=== PATIENT | female | born 1975 | race Caucasian/White ===

== ENCOUNTER 2019-04-24 21:04 | Inpatient (IN) | payer OTHER ==
[~2019-04-24] VITALS: Ht 172.7 cm; Wt 81.6 kg
[2019-04-24 21:51] LABS: BASOPHIL % 0.9 % (0-2); PLATELET COUNT 370 x10^3mcL (130-400)
[2019-04-24 21:54] LABS: RED CELL DISTRIBUTION WIDTH 21.6 % (11.5-14.5)
[2019-04-24 22:02] LABS: rbc morphology (normal/abnorm) ABNORMAL (NORMAL)
[2019-04-24 22:04] LABS: CALCIUM 9.5 mg/dL (8.5-10.1); CARBON DIOXIDE 18.6 mmol/L (21-32); CREATININE SERUM 1.3 mg/dL (0.6-1.0); POTASSIUM SERUM 4.2 mmol/L (3.5-5.1)
[2019-04-24 22:06] LABS: BILIRUBIN TOTAL 0.1 mg/dL (0.20-1.00); TOTAL PROTEIN, SERUM 7.7 g/dL (6.4-8.2)
[2019-04-24 22:13] LABS: ALBUMIN 2.7 g/dL (3.4-5.0)
[2019-04-25 01:39] LABS: CHOLESTEROL 161 mg/dL (<200); MAGNESIUM 2.1 mg/dL (1.8-2.4); PHOSPHOROUS 4.3 mg/dL (2.5-4.9)
[2019-04-25 01:41] LABS: CHOLESTEROL/HDL RATIO 5.2; HDL CHOLESTEROL 31 mg/dL (40-60); TRIGLYCERIDES 480 mg/dL (<150)
[2019-04-25 01:48] LABS: T3 TOTAL 1.43 ng/mL
[2019-04-25 01:56] LABS: FREE T4 1.17 ng/dL (0.76-1.46); FREE THYROXINE INDEX 3.4 ug/dL (1.4-4.5); T4(THYROXINE) 8.6 ug/dL (4.7-13.3)
[2019-04-25] MEDS ORDERED: LEVEMIR100 U/M1 SC (02:03)
[2019-04-25] MEDS ORDERED: METFORMIN HYDR500 M1 PO (02:04)
[2019-04-25] MEDS ORDERED: KAPVAY0.1 MG (02:05)
[2019-04-25] MEDS ORDERED: GLYBURIDE2.5 MG (02:05)
[2019-04-25 02:34] VITALS: BP 124/74
[2019-04-25 05:44] LABS: CALCIUM 9.7 mg/dL (8.5-10.1); CARBON DIOXIDE 22.4 mmol/L (21-32); CHLORIDE SERUM 98 mmol/L (98-107); CREATININE SERUM 0.8 mg/dL (0.6-1.0); GFR1 > 60 mL/min; GLUCOSE SERUM 367 mg/dL (74-106); LIPASE 109 IU/L (73-393); MAGNESIUM 1.9 mg/dL (1.8-2.4); POTASSIUM SERUM 3.6 mmol/L (3.5-5.1); SODIUM SERUM 135 mmol/L (136-145)
[2019-04-25 08:36] LABS: CHLORIDE SERUM 101 mmol/L (98-107); CREATININE SERUM 0.6 mg/dL (0.6-1.0); GFR1 > 60 mL/min; GLUCOSE SERUM 260 mg/dL (74-106); MAGNESIUM 1.7 mg/dL (1.8-2.4); PHOSPHOROUS 3.7 mg/dL (2.5-4.9); POTASSIUM SERUM 3.6 mmol/L (3.5-5.1); SODIUM SERUM 135 mmol/L (136-145)
[2019-04-25 08:59] LABS: PLATELET COUNT 347 x10^3mcL (130-400)
[2019-04-25 09:00] LABS: RED CELL DISTRIBUTION WIDTH 22.5 % (11.5-14.5)
[2019-04-25 10:15] LABS: BAND NEUTROPHIL 0 % (0-10); BASOPHIL 0 % (0-2); MONOCYTE 13 % (0-7); SEGMENTED NEUTROPHILS 63 % (37-75); rbc morphology (normal/abnorm) ABNORMAL (NORMAL)
[2019-04-25 11:58] LABS: PLATELET MORPHOLOGY PLATELETS NORMAL
[2019-04-25 12:42] VITALS: BP 129/79
[2019-04-25 12:59] LABS: microscopic required? YES; urine erythrocyte 2+ (NEGATIVE)
[2019-04-25 13:21] LABS: CALCIUM 9.2 mg/dL (8.5-10.1); CARBON DIOXIDE 24.3 mmol/L (21-32); CHLORIDE SERUM 104 mmol/L (98-107); CREATININE SERUM 0.7 mg/dL (0.6-1.0); GFR1 > 60 mL/min; GLUCOSE SERUM 213 mg/dL (74-106); MAGNESIUM 1.8 mg/dL (1.8-2.4); PHOSPHOROUS 3.8 mg/dL (2.5-4.9); POTASSIUM SERUM 4.1 mmol/L (3.5-5.1); SODIUM SERUM 139 mmol/L (136-145)
[2019-04-25 13:32] VITALS: BP 127/76
[2019-04-25 13:51] LABS: AMPHETAMINE QUAL UR NONE DETECTED (See below)
[2019-05-01 10:02] VITALS: Ht 172.7 cm; Wt 81.6 kg
== END 2019-04-25 17:00 | disposition left against medical advice (07) | DRG 420 ==
LOC: ED 21:04 → IC 04-25 00:25
PROVIDERS: Emergency Medicine; Internal Medicine; ADMIT Internal Medicine
DX: E11.00 Type 2 diabetes mellitus with hyperosmolarity without nonketotic hyperglycemic-hyperosmolar coma (NKHHC) (principal); N17.0 Acute kidney failure with tubular necrosis; E46 Unspecified protein-calorie malnutrition; E87.1 Hypo-osmolality and hyponatremia; F12.10 Cannabis abuse, uncomplicated; D50.9 Iron deficiency anemia, unspecified; N12 Tubulo-interstitial nephritis, not specified as acute or chronic; I10 Essential (primary) hypertension; E78.5 Hyperlipidemia, unspecified; K64.4 Residual hemorrhoidal skin tags; Z53.21 Procedure and treatment not carried out due to patient leaving prior to being seen by health care provider; Z59.0 Homelessness; Z79.4 Long term (current) use of insulin; Z89.612 Acquired absence of left leg above knee; Z68.34 Body mass index [BMI] 34.0-34.9, adult; Z79.84 Long term (current) use of oral hypoglycemic drugs; Z91.14 Patient's other noncompliance with medication regimen; Z84.89 Family history of other specified conditions; Z79.899 Other long term (current) drug therapy
CPT/HCPCS: 82962; 84439; G0378; J1815; J1956; J2060; J2270; J2405; J2543; J3010; J7030; Q0092; Q0163

== ENCOUNTER 2019-05-04 12:28 | Emergency (ER) | payer OTHER ==
[~2019-05-04] VITALS: Ht 172.7 cm; Wt 93.0 kg
[2019-05-04 12:28] VITALS: Ht 172.7 cm; Wt 93.0 kg
[~2019-05-04 12:28] MED LIST: GLYBURIDE2.5 MG; KAPVAY0.1 MG; LEVEMIR100 U/M1 SC; METFORMIN HYDR500 M1 PO
[2019-05-04 13:32] LABS: CALCIUM 9.2 mg/dL (8.5-10.1); CARBON DIOXIDE 25.5 mmol/L (21-32); CHLORIDE SERUM 99 mmol/L (98-107); CREATININE SERUM 0.7 mg/dL (0.6-1.0); GFR1 > 60 mL/min; POTASSIUM SERUM 3.3 mmol/L (3.5-5.1); SODIUM SERUM 135 mmol/L (136-145)
[2019-05-04 13:33] LABS: GLUCOSE SERUM 484 mg/dL (74-106)
[2019-05-04 15:09] VITALS: BP 128/72
== END 2019-05-04 15:09 | disposition home or self-care (01) ==
LOC: ED 12:28
PROVIDERS: Emergency Medicine
DX: L03.312 Cellulitis of back [any part except buttock and flank] (principal); N39.0 Urinary tract infection, site not specified; E11.65 Type 2 diabetes mellitus with hyperglycemia; F11.90 Opioid use, unspecified, uncomplicated; I10 Essential (primary) hypertension
CPT/HCPCS: J0696

== ENCOUNTER 2019-08-30 00:24 | Inpatient (IN) | payer OTHER ==
[~2019-08-30] VITALS: Ht 172.7 cm; Wt 84.5 kg
[2019-08-30 02:38] LABS: BASOPHIL % 0.7 % (0-2); PLATELET COUNT 264 x10^3mcL (130-400); RED CELL DISTRIBUTION WIDTH 13.5 % (11.5-14.5)
[2019-08-30 02:48] LABS: UA SPECIFIC GRAVITY <=1.005 (1.005-1.035); microscopic required? YES; urine erythrocyte TRACE (NEGATIVE)
[2019-08-30 02:57] LABS: BILIRUBIN TOTAL 0.2 mg/dL (0.20-1.00); CALCIUM 7.8 mg/dL (8.5-10.1); CARBON DIOXIDE 23.1 mmol/L (21-32); CREATININE SERUM 1.1 mg/dL (0.6-1.0); POTASSIUM SERUM 5.5 mmol/L (3.5-5.1); TOTAL PROTEIN, SERUM 7.1 g/dL (6.4-8.2)
[2019-08-30 03:01] LABS: AMPHETAMINE QUAL UR NONE DETECTED (See below)
[2019-08-30 03:03] LABS: ALBUMIN 2.6 g/dL (3.4-5.0)
[2019-08-30 04:32] LABS: CHOLESTEROL 146 mg/dL (<200)
[2019-08-30 04:44] LABS: CHOLESTEROL/HDL RATIO 4.6; HDL CHOLESTEROL 32 mg/dL (40-60); TRIGLYCERIDES 450 mg/dL (<150)
[2019-08-30] MEDS ORDERED: NORCO1 TA2 PO (04:45)
[2019-08-30] MEDS ORDERED: METFORMIN500 M1 PO (04:45)
[2019-08-30] MEDS ORDERED: ATIVAN2 MG PO (04:46)
[2019-08-30] MEDS ORDERED: TRAZODONE150 M1 PO (04:46)
[2019-08-30] MEDS ORDERED: METHADONE HCL10 MG PO (04:46)
[2019-08-30] MEDS ORDERED: COLACE100 MG PO (04:47)
[2019-08-30 05:49] VITALS: BP 101/53
[2019-08-30 06:41] LABS: BASOPHIL % 0.1 % (0-2); PLATELET COUNT 245 x10^3mcL (130-400); RED CELL DISTRIBUTION WIDTH 13.6 % (11.5-14.5)
[2019-08-30 07:11] LABS: CARBON DIOXIDE 20.2 mmol/L (21-32); CHLORIDE SERUM 97 mmol/L (98-107); CREATININE SERUM 0.9 mg/dL (0.6-1.0); GFR1 > 60 mL/min; MAGNESIUM 1.7 mg/dL (1.8-2.4); PHOSPHOROUS 3.6 mg/dL (2.5-4.9); POTASSIUM SERUM 3.8 mmol/L (3.5-5.1); SODIUM SERUM 129 mmol/L (136-145)
[2019-08-30 07:19] LABS: GLUCOSE SERUM 543 mg/dL (74-106)
[2019-08-30 07:39] VITALS: BP 93/54
[2019-08-30 08:24] VITALS: Ht 172.7 cm; Wt 84.5 kg
[2019-08-30 11:14] VITALS: BP 82/53
[2019-08-30 15:16] VITALS: BP 98/56
[2019-08-30 19:29] VITALS: BP 131/74
[2019-08-30 23:17] VITALS: BP 114/61
[2019-08-31 03:04] VITALS: BP 106/62
[2019-08-31 05:09] LABS: BASOPHIL % 0.3 % (0-2); PLATELET COUNT 223 x10^3mcL (130-400); RED CELL DISTRIBUTION WIDTH 13.6 % (11.5-14.5)
[2019-08-31 05:14] LABS: CALCIUM 7.7 mg/dL (8.5-10.1); CARBON DIOXIDE 22.8 mmol/L (21-32); CHLORIDE SERUM 106 mmol/L (98-107); CREATININE SERUM 0.7 mg/dL (0.6-1.0); GFR1 > 60 mL/min; GLUCOSE SERUM 206 mg/dL (74-106); SODIUM SERUM 137 mmol/L (136-145)
[2019-08-31 08:08] VITALS: BP 117/58
[2019-08-31 08:38] VITALS: BP 137/90
[2019-08-31 12:02] VITALS: BP 147/79
[2019-08-31 17:15] VITALS: BP 149/94
[2019-08-31 19:48] VITALS: BP 125/59
[2019-09-01 03:39] VITALS: BP 128/62
[2019-09-01 08:34] VITALS: BP 127/71
[2019-09-01] MEDS ORDERED: CLEOCIN HCL300 MG PO (11:26)
[2019-09-01] MEDS ORDERED: BACO TOP (12:16)
[2019-09-01] MEDS ORDERED: APLICARE ANTIS118 M3 TOP (12:16)
[2019-09-01 12:57] VITALS: BP 127/71
== END 2019-09-01 17:13 | disposition home or self-care (01) | DRG 364 ==
LOC: ED 00:24 → EDBEDREQ 03:44 → IC 03:44 → DU 03:44 → IC 04:36 → DU 08-31 05:26 → MU 08-31 13:01
PROVIDERS: Emergency Medicine; ADMIT Internal Medicine
PROC: 0J940ZZ Drainage of Right Neck Subcutaneous Tissue and Fascia, Open Approach (ICD-10-PCS; principal; 2019-08-30)
DX: L02.11 Cutaneous abscess of neck (principal); N17.0 Acute kidney failure with tubular necrosis; E11.00 Type 2 diabetes mellitus with hyperosmolarity without nonketotic hyperglycemic-hyperosmolar coma (NKHHC); F31.9 Bipolar disorder, unspecified; F43.10 Post-traumatic stress disorder, unspecified; I10 Essential (primary) hypertension; L02.416 Cutaneous abscess of left lower limb; E83.51 Hypocalcemia; E87.1 Hypo-osmolality and hyponatremia; E87.5 Hyperkalemia; N39.0 Urinary tract infection, site not specified; Z99.3 Dependence on wheelchair; Z79.4 Long term (current) use of insulin; Z68.30 Body mass index [BMI] 30.0-30.9, adult; Z89.612 Acquired absence of left leg above knee; Z91.14 Patient's other noncompliance with medication regimen; Z90.49 Acquired absence of other specified parts of digestive tract; Z23 Encounter for immunization; Z79.899 Other long term (current) drug therapy
CPT/HCPCS: 82962; 87804; 90658; 90732; G0378; J1170; J1815; J1885; J2001; J2270; J2405; J2543; J3370; J7030; J7040; J7050; Q0092

== ENCOUNTER 2019-09-04 11:47 | Inpatient (IN) | payer OTHER ==
[~2019-09-04] VITALS: Ht 172.7 cm; Wt 77.2 kg
[~2019-09-04 11:47] MED LIST changes: +APLICARE ANTIS118 M3 TOP; +ATIVAN2 MG PO; +BACO TOP; +CLEOCIN HCL300 MG PO; +COLACE100 MG PO; +METFORMIN500 M1 PO; +METHADONE HCL10 MG PO; +NORCO1 TA2 PO; +TRAZODONE150 M1 PO
[2019-09-04 13:27] LABS: BASOPHIL % 0.3 % (0-2); PLATELET COUNT 385 x10^3mcL (130-400); RED CELL DISTRIBUTION WIDTH 13.5 % (11.5-14.5)
[2019-09-04 13:37] LABS: CALCIUM 9.2 mg/dL (8.5-10.1); CARBON DIOXIDE 21.1 mmol/L (21-32); CHLORIDE SERUM 95 mmol/L (98-107); CREATININE SERUM 0.9 mg/dL (0.6-1.0); GFR1 > 60 mL/min; GLUCOSE SERUM 366 mg/dL (74-106); POTASSIUM SERUM 4.4 mmol/L (3.5-5.1); SODIUM SERUM 129 mmol/L (136-145)
[2019-09-04 13:42] LABS: ALBUMIN 3.4 g/dL (3.4-5.0); ALKALINE PHOSPHATASE 120 U/L (46-116); ALT/SGPT 16 U/L (14-59); AMYLASE 44 U/L (25-115); AST/SGOT 12 U/L (15-37); BILIRUBIN TOTAL 0.2 mg/dL (0.20-1.00); LIPASE 62 IU/L (73-393)
[2019-09-04 13:43] LABS: TOTAL PROTEIN, SERUM 8.7 g/dL (6.4-8.2)
[2019-09-04] MEDS ORDERED: METFORMIN500 M1 GT (17:26)
[2019-09-04 18:06] LABS: CHOLESTEROL/HDL RATIO 5.1; MAGNESIUM 1.9 mg/dL (1.8-2.4); PHOSPHOROUS 4.3 mg/dL (2.5-4.9)
[2019-09-04 18:07] LABS: T3 TOTAL 1.43 ng/mL
[2019-09-04 18:12] LABS: FREE T4 1.05 ng/dL (0.76-1.46); FREE THYROXINE INDEX 3.4 ug/dL (1.4-4.5); T4(THYROXINE) 10.1 ug/dL (4.7-13.3)
[2019-09-04 18:35] VITALS: BP 134/86
[2019-09-04 18:46] VITALS: Ht 172.7 cm; Wt 77.2 kg
[2019-09-04 19:47] VITALS: BP 149/96
[2019-09-05 06:17] VITALS: BP 109/64
[2019-09-05 09:04] VITALS: BP 116/67
[2019-09-05 16:30] VITALS: BP 98/58
== END 2019-09-05 18:17 | disposition left against medical advice (07) | DRG 48 ==
LOC: ED 11:47 → MU 17:15
PROVIDERS: Student in an Organized Health Care Education/Training Program; ADMIT Internal Medicine
DX: E11.43 Type 2 diabetes mellitus with diabetic autonomic (poly)neuropathy (principal); N17.0 Acute kidney failure with tubular necrosis; E11.65 Type 2 diabetes mellitus with hyperglycemia; E87.1 Hypo-osmolality and hyponatremia; E87.8 Other disorders of electrolyte and fluid balance, not elsewhere classified; L02.416 Cutaneous abscess of left lower limb; K31.84 Gastroparesis; F43.10 Post-traumatic stress disorder, unspecified; F31.9 Bipolar disorder, unspecified; Z53.21 Procedure and treatment not carried out due to patient leaving prior to being seen by health care provider; E86.0 Dehydration; I10 Essential (primary) hypertension; Z99.3 Dependence on wheelchair; Z89.612 Acquired absence of left leg above knee; Z91.14 Patient's other noncompliance with medication regimen; Z79.4 Long term (current) use of insulin; Z90.49 Acquired absence of other specified parts of digestive tract; Z79.899 Other long term (current) drug therapy
CPT/HCPCS: 36600; 82962; 84439; 87046; 87046-59; G0378; J1815; J1885; J2270; J2405; J2765; J3370; J7030; Q0092

== ENCOUNTER 2019-10-30 16:07 | Emergency (ER) | payer OTHER ==
[~2019-10-30 16:07] MED LIST changes: +METFORMIN500 M1 GT
== END 2019-10-30 17:45 | disposition left against medical advice (07) ==
LOC: ED 16:07
DX: Z53.21 Procedure and treatment not carried out due to patient leaving prior to being seen by health care provider (principal)

== ENCOUNTER 2020-02-10 13:16 | Emergency (ER) | payer OTHER ==
[~2020-02-10] VITALS: Ht 172.7 cm; Wt 77.1 kg
[2020-02-10 13:21] VITALS: Ht 172.7 cm; Wt 77.1 kg
[2020-02-10 14:15] VITALS: BP 116/97
== END 2020-02-10 14:15 | disposition home or self-care (01) ==
LOC: ED 13:16
DX: L02.811 Cutaneous abscess of head [any part, except face] (principal); I10 Essential (primary) hypertension; E11.9 Type 2 diabetes mellitus without complications; Z90.49 Acquired absence of other specified parts of digestive tract; Z90.89 Acquired absence of other organs; Z88.5 Allergy status to narcotic agent
CPT/HCPCS: J1885; J2001

== ENCOUNTER 2020-05-19 19:44 | Inpatient (IN) | payer OTHER ==
[~2020-05-19] VITALS: Ht 172.7 cm; Wt 77.7 kg
[2020-05-19 21:37] LABS: RED CELL DISTRIBUTION WIDTH 13.9 % (11.5-14.5)
[2020-05-19 21:39] LABS: PLATELET COUNT 473 x10^3mcL (130-400)
[2020-05-19 21:52] LABS: BAND NEUTROPHIL 3 % (0-10); BASOPHIL 0 % (0-2); METAMYELOCTE 1 % (0-2); MONOCYTE 6 % (0-7); SEGMENTED NEUTROPHILS 75 % (37-75)
[2020-05-19 21:53] LABS: PLATELET MORPHOLOGY PLATELETS INCREASED; rbc morphology (normal/abnorm) NORMAL (NORMAL)
[2020-05-19 22:31] LABS: CALCIUM 7.8 mg/dL (8.5-10.1); CARBON DIOXIDE 20.8 mmol/L (21-32); CHLORIDE SERUM 92 mmol/L (98-107); GFR1 > 60 mL/min; GLUCOSE SERUM 384 mg/dL (74-106); POTASSIUM SERUM 3.7 mmol/L (3.5-5.1); SODIUM SERUM 128 mmol/L (136-145)
[2020-05-19 22:39] LABS: ALKALINE PHOSPHATASE 170 U/L (46-116); ALT/SGPT 15 U/L (14-59); AST/SGOT 15 U/L (15-37); BILIRUBIN TOTAL 0.1 mg/dL (0.20-1.00); MAGNESIUM 1.5 mg/dL (1.8-2.4); TOTAL PROTEIN, SERUM 6.3 g/dL (6.4-8.2)
[2020-05-19 22:43] LABS: ALBUMIN 2.1 g/dL (3.4-5.0)
[2020-05-19 22:56] LABS: UA SPECIFIC GRAVITY >=1.030 (1.005-1.035); microscopic required? YES; urine erythrocyte 3+ (NEGATIVE)
[2020-05-20 00:42] VITALS: BP 98/58
[2020-05-20 00:55] VITALS: Ht 172.7 cm; Wt 77.7 kg
[2020-05-20 06:47] VITALS: BP 91/58
[2020-05-20 07:55] LABS: AMPHETAMINE QUAL UR NONE DETECTED (See below)
[2020-05-20 09:10] VITALS: BP 116/64
[2020-05-20 12:40] VITALS: BP 116/60
[2020-05-20 16:47] VITALS: BP 112/52
[2020-05-20 21:19] VITALS: BP 113/71
[2020-05-21] VITALS (7 sets, daily range): BP systolic 99–141; BP diastolic 52–80
[2020-05-21 09:42] LABS: BASOPHIL % 0.3 % (0-2); RED CELL DISTRIBUTION WIDTH 14.2 % (11.5-14.5)
[2020-05-21 10:05] LABS: PLATELET COUNT 439 x10^3mcL (130-400)
[2020-05-21 10:44] LABS: CALCIUM 8.4 mg/dL (8.5-10.1); CARBON DIOXIDE 23.3 mmol/L (21-32); CHLORIDE SERUM 99 mmol/L (98-107); CREATININE SERUM 0.8 mg/dL (0.6-1.0); GFR1 > 60 mL/min; GLUCOSE SERUM 346 mg/dL (74-106); MAGNESIUM 1.8 mg/dL (1.8-2.4); SODIUM SERUM 134 mmol/L (136-145)
[2020-05-21 10:45] LABS: POTASSIUM SERUM 2.8 mmol/L (3.5-5.1)
[2020-05-22 05:17] VITALS: BP 165/101
[2020-05-22 08:32] VITALS: BP 138/73
[2020-05-22 12:20] VITALS: BP 116/59
[2020-05-22 16:55] VITALS: BP 142/82
[2020-05-22 20:26] VITALS: BP 155/83
[2020-05-23 05:04] VITALS: BP 147/81
[2020-05-23 07:35] VITALS: BP 147/88
[2020-05-23 12:24] VITALS: BP 162/91
[2020-05-23 16:08] VITALS: BP 138/73
[2020-05-24 07:37] LABS: BASOPHIL % 0.1 % (0-2); RED CELL DISTRIBUTION WIDTH 13.4 % (11.5-14.5)
[2020-05-24 07:44] LABS: CALCIUM 8.2 mg/dL (8.5-10.1); CARBON DIOXIDE 26.9 mmol/L (21-32); CHLORIDE SERUM 101 mmol/L (98-107); CREATININE SERUM 0.6 mg/dL (0.6-1.0); GFR1 > 60 mL/min; GLUCOSE SERUM 170 mg/dL (74-106); MAGNESIUM 1.6 mg/dL (1.8-2.4); PHOSPHOROUS 3.3 mg/dL (2.5-4.9); PLATELET COUNT 488 x10^3mcL (130-400); POTASSIUM SERUM 3.6 mmol/L (3.5-5.1); SODIUM SERUM 136 mmol/L (136-145)
[2020-05-24 09:11] VITALS: BP 144/84
[2020-05-24 13:29] VITALS: BP 142/76
[2020-05-24 17:36] VITALS: BP 135/71
[2020-05-24 22:59] VITALS: BP 138/72
[2020-05-25 05:29] VITALS: BP 139/74
[2020-05-25 07:03] LABS: BASOPHIL % 0.4 % (0-2); RED CELL DISTRIBUTION WIDTH 14.3 % (11.5-14.5)
[2020-05-25 07:11] LABS: PLATELET COUNT 469 x10^3mcL (130-400)
[2020-05-25 07:19] LABS: CALCIUM 8.3 mg/dL (8.5-10.1); CHLORIDE SERUM 101 mmol/L (98-107); CREATININE SERUM 0.6 mg/dL (0.6-1.0); GFR1 > 60 mL/min; GLUCOSE SERUM 238 mg/dL (74-106); MAGNESIUM 1.7 mg/dL (1.8-2.4); PHOSPHOROUS 4.2 mg/dL (2.5-4.9); POTASSIUM SERUM 4.4 mmol/L (3.5-5.1); SODIUM SERUM 134 mmol/L (136-145)
[2020-05-25 09:19] VITALS: BP 135/88
[2020-05-25 13:42] VITALS: BP 161/98
[2020-05-25 17:33] VITALS: BP 142/96
[2020-05-25 20:32] VITALS: BP 120/65
[2020-05-26 05:27] VITALS: BP 135/78
[2020-05-26 08:07] VITALS: BP 129/76
[2020-05-26 08:50] LABS: CALCIUM 8.1 mg/dL (8.5-10.1); CARBON DIOXIDE 25.4 mmol/L (21-32); CHLORIDE SERUM 105 mmol/L (98-107); CREATININE SERUM 0.6 mg/dL (0.6-1.0); GFR1 > 60 mL/min; GLUCOSE SERUM 171 mg/dL (74-106); MAGNESIUM 1.8 mg/dL (1.8-2.4); PHOSPHOROUS 4.1 mg/dL (2.5-4.9); POTASSIUM SERUM 4.1 mmol/L (3.5-5.1); SODIUM SERUM 139 mmol/L (136-145)
[2020-05-26 10:22] LABS: BASOPHIL % 0.5 % (0-2); RED CELL DISTRIBUTION WIDTH 14.6 % (11.5-14.5)
[2020-05-26 10:43] LABS: PLATELET COUNT 538 x10^3mcL (130-400)
[2020-05-26 12:31] VITALS: BP 142/78
[2020-05-26 17:00] VITALS: BP 132/84
[2020-05-26 20:31] VITALS: BP 127/75
[2020-05-27 05:15] VITALS: BP 145/85
[2020-05-27 07:41] LABS: BASOPHIL % 0.6 % (0-2)
[2020-05-27 08:16] LABS: CALCIUM 8.9 mg/dL (8.5-10.1); CARBON DIOXIDE 23.7 mmol/L (21-32); CHLORIDE SERUM 102 mmol/L (98-107); CREATININE SERUM 0.7 mg/dL (0.6-1.0); GFR1 > 60 mL/min; GLUCOSE SERUM 322 mg/dL (74-106); MAGNESIUM 2.2 mg/dL (1.8-2.4); PHOSPHOROUS 4.6 mg/dL (2.5-4.9); POTASSIUM SERUM 4.7 mmol/L (3.5-5.1); SODIUM SERUM 135 mmol/L (136-145)
[2020-05-27 08:32] LABS: PLATELET COUNT 476 x10^3mcL (130-400)
[2020-05-27 08:54] VITALS: BP 139/75
[2020-05-27 12:53] VITALS: BP 142/92
[2020-05-27] MEDS ORDERED: BACTRIM DS1 TAB PO (13:29)
== END 2020-05-27 16:30 | disposition home health service (06) | DRG 361 ==
LOC: ED 19:44 → DU 23:25 → MU 23:25 → DU 05-20 00:23 → MU 05-21 20:42
PROVIDERS: Emergency Medicine; Internal Medicine; Student in an Organized Health Care Education/Training Program; Surgery; ADMIT Internal Medicine; ATTEND Internal Medicine
PROC: 0X983ZZ Drainage of Right Upper Arm, Percutaneous Approach (ICD-10-PCS; 2020-05-20)
PROC: 0WBK0ZZ Excision of Upper Back, Open Approach (ICD-10-PCS; principal; 2020-05-20 15:00)
PROC: 02H633Z Insertion of Infusion Device into Right Atrium, Percutaneous Approach (ICD-10-PCS; 2020-05-21)
PROC: B548ZZA Ultrasonography of Superior Vena Cava, Guidance (ICD-10-PCS; 2020-05-21)
DX: L02.232 Carbuncle of back [any part, except buttock and flank] (principal); E43 Unspecified severe protein-calorie malnutrition; D68.69 Other thrombophilia; D62 Acute posthemorrhagic anemia; E11.65 Type 2 diabetes mellitus with hyperglycemia; E83.42 Hypomagnesemia; L03.312 Cellulitis of back [any part except buttock and flank]; E87.1 Hypo-osmolality and hyponatremia; I10 Essential (primary) hypertension; L02.413 Cutaneous abscess of right upper limb; K57.90 Diverticulosis of intestine, part unspecified, without perforation or abscess without bleeding; Z20.828 Contact with and (suspected) exposure to other viral communicable diseases; B95.62 Methicillin resistant Staphylococcus aureus infection as the cause of diseases classified elsewhere; F43.10 Post-traumatic stress disorder, unspecified; Z68.26 Body mass index [BMI] 26.0-26.9, adult; Z89.612 Acquired absence of left leg above knee; Z88.5 Allergy status to narcotic agent; Z90.49 Acquired absence of other specified parts of digestive tract; Z59.0 Homelessness
CPT/HCPCS: 82962; 97116-GP; 97530-GP; G0378; J0360; J1200; J1644; J1815; J1885; J2060; J2175; J2250; J2270; J2405; J2543; J3010; J3370; J3475; J3480; J7030; J7050; Q0092; U0003-CS

== ENCOUNTER 2020-07-27 19:23 | Inpatient (IN) | payer OTHER ==
[~2020-07-27] VITALS: Ht 160 cm; Wt 85.3 kg
[~2020-07-27 19:23] MED LIST changes: +BACTRIM DS1 TAB PO
[2020-07-27 19:33] VITALS: Ht 160 cm; Wt 85.3 kg
[2020-07-27 21:19] LABS: BASOPHIL % 0.2 % (0-2); PLATELET COUNT 239 x10^3mcL (130-400)
[2020-07-27 21:37] LABS: CALCIUM 8.7 mg/dL (8.5-10.1); CARBON DIOXIDE 22.2 mmol/L (21-32); CHLORIDE SERUM 92 mmol/L (98-107); CREATININE SERUM 1.2 mg/dL (0.6-1.0); GFR1 52 mL/min; POTASSIUM SERUM 4.3 mmol/L (3.5-5.1); SODIUM SERUM 126 mmol/L (136-145)
[2020-07-27 21:38] LABS: ALKALINE PHOSPHATASE 192 U/L (46-116); ALT/SGPT 25 U/L (14-59); AST/SGOT 14 U/L (15-37); BILIRUBIN TOTAL 0.19 mg/dL (0.20-1.00); LIPASE 233 IU/L (73-393); TOTAL PROTEIN, SERUM 7.9 g/dL (6.4-8.2)
[2020-07-27 21:40] LABS: ALBUMIN 2.8 g/dL (3.4-5.0)
[2020-07-27 21:50] LABS: UA SPECIFIC GRAVITY <=1.005 (1.005-1.035); microscopic required? YES; urine erythrocyte 2+ (NEGATIVE)
[2020-07-27 22:00] LABS: GLUCOSE SERUM 705 mg/dL (74-106)
[2020-07-27 22:09] LABS: AMPHETAMINE QUAL UR NONE DETECTED (See below)
[2020-07-28] VITALS (7 sets, daily range): BP systolic 106–152; BP diastolic 53–86
[2020-07-29 05:53] VITALS: BP 139/76
[2020-07-29 07:59] LABS: BASOPHIL % 0.3 % (0-2); PLATELET COUNT 174 x10^3mcL (130-400); RED CELL DISTRIBUTION WIDTH 13.4 % (11.5-14.5)
[2020-07-29 08:05] VITALS: BP 118/71
[2020-07-29 08:13] LABS: CALCIUM 8.5 mg/dL (8.5-10.1); CARBON DIOXIDE 20.7 mmol/L (21-32); CHLORIDE SERUM 103 mmol/L (98-107); CHOLESTEROL 171 mg/dL (<200); CHOLESTEROL/HDL RATIO 3.3; CREATININE SERUM 0.7 mg/dL (0.6-1.0); GFR1 > 60 mL/min; GLUCOSE SERUM 400 mg/dL (74-106); HDL CHOLESTEROL 52 mg/dL (40-60); PHOSPHOROUS 3.4 mg/dL (2.5-4.9); POTASSIUM SERUM 4.3 mmol/L (3.5-5.1); SODIUM SERUM 132 mmol/L (136-145)
[2020-07-29 08:14] LABS: TRIGLYCERIDES 229 mg/dL (<150)
[2020-07-29 12:00] VITALS: BP 140/79
[2020-07-30 06:23] VITALS: BP 122/66
[2020-07-30 07:53] LABS: CALCIUM 8.6 mg/dL (8.5-10.1); CARBON DIOXIDE 25.4 mmol/L (21-32); CHLORIDE SERUM 103 mmol/L (98-107); CREATININE SERUM 0.6 mg/dL (0.6-1.0); GFR1 > 60 mL/min; GLUCOSE SERUM 133 mg/dL (74-106); MAGNESIUM 1.7 mg/dL (1.8-2.4); PHOSPHOROUS 3.8 mg/dL (2.5-4.9); POTASSIUM SERUM 3.7 mmol/L (3.5-5.1); SODIUM SERUM 135 mmol/L (136-145)
[2020-07-30 08:06] LABS: BASOPHIL % 0.2 % (0-2); PLATELET COUNT 183 x10^3mcL (130-400)
[2020-07-30 08:49] VITALS: BP 147/75
[2020-07-30 12:05] VITALS: BP 146/77
[2020-07-30 13:33] VITALS: BP 146/77
[2020-07-30] MEDS ORDERED: AMERINET CHOICE1 PD3 IV (15:20)
[2020-07-30 16:12] VITALS: BP 130/76
== END 2020-07-30 16:19 | DRG 710 ==
LOC: ED 19:23 → DU 07-28 00:55
PROVIDERS: Emergency Medicine; Surgery; ADMIT Hospitalist; ATTEND Hospitalist
PROC: 0D9Q0ZZ Drainage of Anus, Open Approach (ICD-10-PCS; principal; 2020-07-28 10:30)
DX: A41.9 Sepsis, unspecified organism (principal); Z89.612 Acquired absence of left leg above knee; K61.1 Rectal abscess; E11.9 Type 2 diabetes mellitus without complications; Z88.6 Allergy status to analgesic agent; I10 Essential (primary) hypertension; Z90.49 Acquired absence of other specified parts of digestive tract; Z79.4 Long term (current) use of insulin; Z20.828 Contact with and (suspected) exposure to other viral communicable diseases
CPT/HCPCS: 82962; G0378; J1170; J1815; J2270; J2405; J2543; J3010; J3370; J3490; J7030; Q0092

== ENCOUNTER 2020-08-14 21:40 | Emergency (ER) | payer OTHER ==
[~2020-08-14] VITALS: Ht 160 cm; Wt 83.9 kg
[~2020-08-14 21:40] MED LIST changes: +AMERINET CHOICE1 PD3 IV
[2020-08-14 22:08] VITALS: Ht 160 cm; Wt 83.9 kg
[2020-08-14 23:03] LABS: CALCIUM 8.6 mg/dL (8.5-10.1); CARBON DIOXIDE 30.3 mmol/L (21-32); CHLORIDE SERUM 97 mmol/L (98-107); CREATININE SERUM 0.8 mg/dL (0.6-1.0); GFR1 > 60 mL/min; GLUCOSE SERUM 265 mg/dL (74-106); POTASSIUM SERUM 4.1 mmol/L (3.5-5.1); SODIUM SERUM 133 mmol/L (136-145)
[2020-08-14 23:07] LABS: BASOPHIL % 0.4 % (0-2); PLATELET COUNT 279 x10^3mcL (130-400); RED CELL DISTRIBUTION WIDTH 13.6 % (11.5-14.5)
[2020-08-14 23:08] LABS: ALBUMIN 2.6 g/dL (3.4-5.0); ALKALINE PHOSPHATASE 90 U/L (46-116); ALT/SGPT 20 U/L (14-59); AST/SGOT 13 U/L (15-37); BILIRUBIN TOTAL 0.1 mg/dL (0.20-1.00); LIPASE 75 IU/L (73-393); TOTAL PROTEIN, SERUM 6.8 g/dL (6.4-8.2)
[2020-08-15 00:34] LABS: UA SPECIFIC GRAVITY 1.025 (1.005-1.035); microscopic required? YES; urine erythrocyte 2+ (NEGATIVE)
[2020-08-15 07:15] VITALS: BP 115/71
== END 2020-08-15 07:15 | disposition home or self-care (01) ==
LOC: ED 21:40
PROVIDERS: Emergency Medicine
DX: R10.815 Periumbilic abdominal tenderness (principal); R42 Dizziness and giddiness; R11.10 Vomiting, unspecified; R19.7 Diarrhea, unspecified; I10 Essential (primary) hypertension; E11.9 Type 2 diabetes mellitus without complications; Z88.5 Allergy status to narcotic agent; Z98.890 Other specified postprocedural states
CPT/HCPCS: J3490; Q0092; Q0162

== ENCOUNTER 2020-09-02 09:29 | Inpatient (IN) | payer OTHER, SELFPAY ==
[~2020-09-02] VITALS: Ht 172.7 cm; Wt 81.9 kg
--- NOTE | 2020-09-02 09:30 | NUR ---
PT bib [facility] amr # 121 stretcher from home.pt states she was exposed to @ 4 days ago by sharing cigarettes and eating to a person that turned positive covid 19 two days ago.now here for coughing,fever.awaits er md evaluations/assesments.shahzad pete.
--- NOTE | 2020-09-02 09:45 | NUR ---
kenya call at [facility] for evaluations/assessments.was able to use bsc with good urine results.urine specimen saved.pt tolerated procedures with no incidents.awaits reevaluations.
--- NOTE | 2020-09-02 10:23 | NUR ---
LABS DRAWN BY HALAL BUTCHER/sent to lab.pt tolerated procedures with no incidents.awaits test results,reevaluations.
[2020-09-02 10:34] LABS: BASOPHIL % 0.3 % (0-2); PLATELET COUNT 245 x10^3mcL (130-400); RED CELL DISTRIBUTION WIDTH 13.2 % (11.5-14.5)
--- NOTE | 2020-09-02 11:16 | NUR ---
laborer heading called for lactic acid 2.6, K 5.6, sugar 696.kenya call made aware.awaits reevaluattions.
[2020-09-02 11:20] LABS: CHLORIDE SERUM 90 mmol/L (98-107)
[2020-09-02 11:21] LABS: ALBUMIN 2.9 g/dL (3.4-5.0); ALKALINE PHOSPHATASE 174 U/L (46-116); ALT/SGPT 29 U/L (14-59); AST/SGOT 8 U/L (15-37); BILIRUBIN TOTAL 0.17 mg/dL (0.20-1.00); CALCIUM 9.4 mg/dL (8.5-10.1); CREATININE SERUM 1.1 mg/dL (0.6-1.0); GFR1 58 mL/min; GLUCOSE SERUM 691 mg/dL (74-106); SODIUM SERUM 124 mmol/L (136-145); TOTAL PROTEIN, SERUM 8.3 g/dL (6.4-8.2)
[2020-09-02 11:22] LABS: POTASSIUM SERUM 5.6 mmol/L (3.5-5.1)
--- NOTE | 2020-09-02 11:47 | NUR ---
ATTEmpted to start iv access on pt and was unsuccessful twice.er md made aware.awaits reevaluatiions.pt tolerated procedures with no incidents.
[2020-09-02 11:51] LABS: microscopic required? YES; urine erythrocyte 2+ (NEGATIVE)
--- NOTE | 2020-09-02 12:16 | NUR ---
RECEIVED TELEPHONE ORDER FROM DR. ZULETA, ADMIT TO: TELE DX: HYPERKALEMNIA, R/O COVID, UNCONTROLLED DM READ BACK ORDERS TO VERIFY, VERIFIED BY DR. ZULETA.
--- NOTE | 2020-09-02 12:40 | NUR ---
RT EJ IV ACCESS ASEPTICALLY BY BOOKYMOISÉS pozo rn to rt ej area.iv meds given per er md orders,given iv slow.pt tolerated procedures with no incidents.awaits bed assignment reevaluations.shahzad pete.
--- NOTE | 2020-09-02 13:55 | NUR ---
current f.s. 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
--- NOTE | 2020-09-02 14:03 | NUR ---
pt endorsed to/accepted by supine rn.awaits transport services,reevaluations.
--- NOTE | 2020-09-02 14:48 | NUR ---
RECEIVED PT FROM ED VIA [facility], CAME IN DUE TO FEVER. AAOX4. C/O HEADACHE. DENIES DIZZINESS. ABLE TO FOLLOW COMMANDS. NO SOB NOTED, LUNG SOUNDS CTA. DENIES CHEST PAIN/PRESSURE, SR ON THE MONITOR. TRACE EDEMA ON RLE. C/O 8/10 ABDOMINAL PAIN, DENIES NAUSEA/VOMITING. LAST BM WAS 2 DAYS AGO. VOIDS. W/ TRACE EDEMA ON RLE. W/ MULTIPLE SCABS ON BUE AND BLE AND SCAB ON THE MEDIAL UPPER BACK, DOUBLE END SEWER. PT REFUSES ASSESSMENT ON HER LOWER BACK AND BUTTOCKS. IV SITE ON THE RIGHT EJ IS PATENT AND INTACT. SIDE RAILS UPX2. CALL LIGHT ON REACH. PRIMARY NURSE SUPIN AT BEDSIDE FOR CONTINUITY OF CARE.
--- NOTE | 2020-09-02 15:00 | NUR ---
RECHECKED XE=[id number].
[2020-09-02 15:10] VITALS: BP 138/79
[2020-09-02 15:13] VITALS: Ht 172.7 cm; Wt 81.9 kg
--- NOTE | 2020-09-02 17:00 | NUR ---
PATIENT KEPT CALLING AND ASKED FOR MORPHINE. PATIENT IS VERY FRUSTATED AND ANGRY, SHE USES "F" WORDS IN EVERY SENTENCES. PATIENT MADE AWARE THAT DOCTOR MERLYN IS HERE AT NURSE STATION WORKING ON ORDERS.
--- NOTE | 2020-09-02 17:52 | NUR ---
PATIENT REQUESTED TO LEAVE HOSPITAL AND SCREAMING USING BAD WORDS. ATLASSIAN ADMINISTRATOR, UNIT JORDAN QUINONES AND ANOTHER 2 RN AT BEDSIDE ATTEMPTED TO CALM PATIENT DOWN. PATIENT PULLED OUT HER IV CATHETER FROM HER RIGHT EJ AND TOOK OUT TELEMETRY AND THROWING ALL FOOD AND WATER PITCHER ON THE FLOOR. DOCTOR MERLYN MADE AWARE. PATIENT THEN STARTED TO CRY AND SAID SHE DOESN'T HAVE A RIDE HOME. PATIENT IS VERY UPSET. SECURITY CALLED.
--- NOTE | 2020-09-02 17:58 | NUR ---
SECURITY WENT IN AND TALKED TO PATIENT. PATIENT STILL VERY UPSET, CRYING AND YELLING AT SECURITY.
--- NOTE | 2020-09-02 18:25 | NUR ---
PATIENT CALLED FROM HER ROOM STATED THAT SHE WANTS TO LEAVE AGAINTS MEDICAL ADVICE WITHOUT BEING SEEN BY DOCTOR. AMA FORMED SIGNED BY PATIENT WHO IS AWAKE,ALERT, ORIENTED X4. PATIENT ABLED TO GET UP AND TRANSFERRED SELF FROM BED TO WHEELCHAIR, ALL PERSONAL BELONGINGS KEPT WITH PATIENT. BROUGHT VIA WHEELCHAIR ASSISTED BY JORDAN BARRON TO [facility]. PATIENT STATED HER SON GOT HER AN UBER RIDE.
== END 2020-09-02 18:25 | disposition left against medical advice (07) | DRG 425 ==
LOC: ED → DU 12:13
PROVIDERS: Emergency Medicine; ADMIT Internal Medicine; ATTEND Internal Medicine
DX: E87.5 Hyperkalemia (principal); E11.65 Type 2 diabetes mellitus with hyperglycemia; I10 Essential (primary) hypertension; Z53.29 Procedure and treatment not carried out because of patient's decision for other reasons; Z20.828 Contact with and (suspected) exposure to other viral communicable diseases; Z88.5 Allergy status to narcotic agent
CPT/HCPCS: 82962; G0378; J1200; J1815; J1885; J2270; J7030; U0003